=== PATIENT | female | born 1945 ===

== ENCOUNTER → 2023-12-02 08:02 | Outpatient (REF) | payer BC, SELFPAY | LOC: WDC 08:02 | PROVIDERS: ATTENDING PHYSICIAN Family Medicine | DX: Z12.31 Encounter for screening mammogram for malignant neoplasm of breast (principal); N85.9 Noninflammatory disorder of uterus, unspecified | CPT/HCPCS: 77063; 77067; 77080 ==

== ENCOUNTER → 2023-12-24 12:02 | Outpatient (REF) | payer BC, SELFPAY | LOC: RAD 12:02 | PROVIDERS: ATTENDING PHYSICIAN Family Medicine | DX: G44.221 Chronic tension-type headache, intractable (principal) | CPT/HCPCS: 70450 ==

== ENCOUNTER → 2024-12-03 08:27 | Outpatient (REF) | payer BC, SELFPAY | LOC: WDC 08:27 | PROVIDERS: ATTENDING PHYSICIAN Family Medicine | DX: M25.511 Pain in right shoulder (principal); Z12.31 Encounter for screening mammogram for malignant neoplasm of breast | CPT/HCPCS: 73000; 77063; 77067 ==